=== PATIENT | female | born 1975 | race Caucasian/White ===

== ENCOUNTER → 2016-12-27 | Outpatient (CLI) | payer MEDICAID ==
[2016-12-27 13:04] LABS: ABSOLUTE LYMPHOCYTES (AUTO) 2.1 10^3/uL (0.5-4.7); ABSOLUTE MONOCYTES (AUTO) 0.5 10^3/uL (0.1-1.4); ABSOLUTE NEUT (AUTO) 8.8 10^3/uL (1.7-8.2); BASOPHILS % (AUTO) 0.2 % (0-2); EOSINOPHILS % (AUTO) 0.4 % (0-6); HEMATOCRIT 35.3 % (36.0-47.0); HEMOGLOBIN 11.9 g/dL (12.0-15.5); HGB HCT DIFFERENCE 0.4; LYMPHOCYTES % (AUTO) 18.4 % (13-45); MEAN CORPUSCULAR HEMOGLOBIN 30.6 pg (27.0-33.4); MEAN CORPUSCULAR HGB CONC 33.7 g/dL (32.0-36.0); MEAN CORPUSCULAR VOLUME 91 fl (80-97); MONOCYTES % (AUTO) 4.5 % (3-13); RED BLOOD COUNT 3.89 10^6/uL (3.72-5.28); RED CELL DISTRIBUTION WIDTH 14.1 % (11.5-14.0); SEGMENTED NEUTROPHILS % (AUTO) 76.5 % (42-78); WHITE BLOOD COUNT 11.5 10^3/uL (4.0-10.5)
[2016-12-28 08:47] LABS: IMMUNOGLOBULIN E 78 IU/mL (0-100)
[2016-12-29 15:38] LABS: ALPHA-1-ANTITRYPSIN SERUM 182 mg/dL (90-200)
[2016-12-29 21:36] LABS: E001-IGE CAT DANDER <0.10 kU/L (Class 0); E005-IGE DOG DANDER <0.10 kU/L (Class 0); G002-IGE BERMUDA GRASS <0.10 kU/L (Class 0); G006-IGE TIMOTHY GRASS <0.10 kU/L (Class 0); G010-IGE JOHNSON GRASS <0.10 kU/L (Class 0); G017-IGE BAHIA GRASS <0.10 kU/L (Class 0); I100-IGE COCKROACHAMERICAN <0.10 kU/L (Class 0); M001-IGE PENICILLIUM CHRYSOGEN <0.10 kU/L (Class 0); M002-IGE CLADOSPORIUM HERBARUM <0.10 kU/L (Class 0); M003-IGE ASPERGILLUS FUMIGATUS <0.10 kU/L (Class 0); M004-IGE MUCOR RACEMOSUS <0.10 kU/L (Class 0); M005-IGE CANDIDA ALBICANS <0.10 kU/L (Class 0); M006-IGE ALTERNARIA ALTERNATA <0.10 kU/L (Class 0); M008-IGE SETOMELANOMMA ROSTRAT <0.10 kU/L (Class 0); M009-IGE FUSARIUM PROLIFERATUM <0.10 kU/L (Class 0); M010-IGE STEMPHYLIUM HERBARUM <0.10 kU/L (Class 0); M012-IGE AUREOBASIDI PULLULANS <0.10 kU/L (Class 0); M013-IGE PHOMA BETAE <0.10 kU/L (Class 0); T001-IGE MAPLE/BOX ELDER <0.10 kU/L (Class 0); T003-IGE BIRCH SILVER <0.10 kU/L (Class 0); T006-IGE CEDAR MOUNTAIN <0.10 kU/L (Class 0); T007-IGE OAK WHITE <0.10 kU/L (Class 0); T008-IGE ELM AMERICAN (WHITE <0.10 kU/L (Class 0); T011-IGE MAPLE LEAF SYCAMORE <0.10 kU/L (Class 0); T041-IGE HICKORY WHITE <0.10 kU/L (Class 0); T211-IGE SWEET GUM <0.10 kU/L (Class 0); W001-IGE RAGWEED SHORT/COMMO <0.10 kU/L (Class 0); W006-IGE MUGWORT <0.10 kU/L (Class 0); W009-IGE PLANTAIN ENGLISH <0.10 kU/L (Class 0); W014-IGE PIGWEED ROUGH <0.10 kU/L (Class 0); W018-IGE SHEEP SORREL(DOCK) <0.10 kU/L (Class 0); W020-IGE NETTLE <0.10 kU/L (Class 0)
[2016-12-30 16:00] LABS: M014-IGE EPICOCCUM PURPURASCEN <0.10 kU/L (Class 0)
== END ==
LOC: OD 11:52
PROVIDERS: ATTEND Nurse Practitioner Adult Health
DX: J43.8 Other emphysema (principal); J45.40 Moderate persistent asthma, uncomplicated
CPT/HCPCS: 36415; 81332; 82103; 82104; 82785; 85025; 86003

== ENCOUNTER → 2017-04-09 | Outpatient (CLI) | payer MEDICAID ==
[2017-04-09 15:16] LABS: ANION GAP 11 (5-19); BLOOD UREA NITROGEN 20 mg/dL (7-20); CALCIUM 9.7 mg/dL (8.4-10.2); CARBON DIOXIDE 25 mmol/L (22-30); CHLORIDE 107 mmol/L (98-107); CREATININE RESULT 0.98 mg/dL (0.52-1.25); GLUCOSE 110 mg/dL (75-110); POTASSIUM 5.1 mmol/L (3.6-5.0); SODIUM 142.8 mmol/L (137-145)
== END ==
LOC: LAB 14:39
PROVIDERS: ATTEND Physician Assistant
DX: E87.5 Hyperkalemia (principal)
CPT/HCPCS: 36415; 80048

== ENCOUNTER → 2017-08-27 | Outpatient (CLI) | payer MEDICAID ==
--- NOTE | 2017-08-27 10:09 | WOMENS IMAGING REPORT ---
EXAM DESCRIPTION: BILAT SCREENING MAMMO W/CAD COMPLETED DATE/TIME: 08/27/2017 9:34 am REASON FOR STUDY: ROUTINE SCREENING; Z12.31 Z12.31 ENCNTR SCREEN MAMMOGRAM FOR MALIGNANT NEOPLASM O F RAFAELA COMPARISON: 12/22/2013 TECHNIQUE: Standard craniocaudal and mediolateral oblique views of each breast recorded using Contappsa l acquisition. LIMITATIONS: None. FINDINGS: Findings present which are benign by mammographic criteria. No suspicious masses, calcifi cations or architectural distortion. Pertinent benign findings: Asymmetry right. Read with the assistance of CAD. .[facility] - R2 Cenova Version 1.3 .[facility] - R2 Cenova Version 1.3 .[facility] - R2 Cenova Version 2.4 .[facility] [place] R2 Cenova Version 2.4 .[facility] - R2 Chucker Version 9.2 Benign mammographic findings may include one or more of the following: Smooth masses, popcorn/rim/co arse calcifications, asymmetries, post-procedure changes, and lesions with long-standing stability. IMPRESSION: BENIGN MAMMOGRAPHIC FINDINGS. BIRADS 2 BREAST DENSITY: b. There are scattered areas of fibroglandular density. BIRAD: 2 BENIGN FINDING(S) RECOMMENDATION: ROUTINE SCREENING COMMENT: The patient has been notified of the results by letter per SA requirements. Additional no tification policies are in place for contacting patient with suspicious or incomplete findings. Quality ID #[id number]: The [employer] recommends an annual screening mammogram for women aged 40 years or over. This facility utilizes a reminder system to ensure that all patients receive reminder letters, and/or direct phone calls for appointments. This includes reminders for routine scr eening mammograms, diagnostic mammograms, or other Breast Imaging Interventions when appropriate. Th is patient will be placed in the appropriate reminder system. The [employer] (ACR) has developed recommendations for screening MRI of the breast s in certain patient populations, to be used in conjunction with mammography. Breast MRI surveillanc e may be appropriate for women with more than 20% lifetime risk of developing breast cancer as deter mined by genetic testing, significant family history of the disease, or history of mantle radiation f or Hodgkins Disease. ACR Practice Guidelines 2008. TECHNICAL DOCUMENTATION: FINDING NUMBER: (1) ASSESSMENT: (1) JOB ID: [id number]- All Rights Reserved
== END ==
LOC: WI 09:19
PROVIDERS: ATTEND Physician Assistant
DX: Z12.31 Encounter for screening mammogram for malignant neoplasm of breast (principal)
CPT/HCPCS: 77067; G0202

== ENCOUNTER → 2018-04-11 | Outpatient (CLI) | payer MEDICAID ==
--- NOTE | 2018-04-11 15:47 | RADIOLOGY REPORT (SQ) ---
EXAM DESCRIPTION: CHEST PA/LATERAL COMPLETED DATE/TIME: 04/11/2018 3:34 pm REASON FOR STUDY: STRAIN OF MUSCLE AND TENDON OF FRONT WALL OF THORAX, INIT COMPARISON: 10/11/2016 EXAM PARAMETERS: NUMBER OF VIEWS: two views TECHNIQUE: Digital Frontal and Lateral radiographic views of the chest acquired. RADIATION DOSE: NA LIMITATIONS: none FINDINGS: LUNGS AND PLEURA: No opacities, masses or pneumothorax. No pleural effusion. MEDIASTINUM AND HILAR STRUCTURES: No masses or contour abnormalities. HEART AND VASCULAR STRUCTURES: Heart normal size. No evidence for failure. BONES: No acute findings. HARDWARE: None in the chest. OTHER: No other significant finding. IMPRESSION: NO SIGNIFICANT RADIOGRAPHIC FINDING IN THE CHEST. TECHNICAL DOCUMENTATION: JOB ID: [id number]- All Rights Reserved Reading location - IP/workstation name: [email or web address]
== END ==
LOC: OD 15:20
PROVIDERS: ATTEND Physician Assistant
DX: S29.011A Strain of muscle and tendon of front wall of thorax, initial encounter (principal); X58.XXXA Exposure to other specified factors, initial encounter
CPT/HCPCS: 71046

== ENCOUNTER → 2018-12-03 | Outpatient (CLI) | payer MEDICAID ==
--- NOTE | 2018-12-03 14:07 | RADIOLOGY REPORT (SQ) ---
EXAM DESCRIPTION: CHEST PA/LATERAL COMPLETED DATE/TIME: 12/03/2018 1:48 pm REASON FOR STUDY: COUGH COMPARISON: 10/11/2016. EXAM PARAMETERS: NUMBER OF VIEWS: two views TECHNIQUE: Digital Frontal and Lateral radiographic views of the chest acquired. RADIATION DOSE: NA LIMITATIONS: none FINDINGS: LUNGS AND PLEURA: No opacities, masses or pneumothorax. No pleural effusion. MEDIASTINUM AND HILAR STRUCTURES: No masses or contour abnormalities. HEART AND VASCULAR STRUCTURES: Heart normal size. No evidence for failure. BONES: No acute findings. HARDWARE: None in the chest. OTHER: No other significant finding. IMPRESSION: NO SIGNIFICANT RADIOGRAPHIC FINDING IN THE CHEST. TECHNICAL DOCUMENTATION: JOB ID: [id number]- All Rights Reserved Reading location - IP/workstation name: [email or web address]
== END ==
LOC: OD 13:35
PROVIDERS: ATTEND Physician Assistant
DX: R05 Cough (principal)
CPT/HCPCS: 71046

== ENCOUNTER → 2019-02-25 | Outpatient (CLI) | payer MEDICAID ==
--- NOTE | 2019-02-25 09:55 | RADIOLOGY REPORT (SQ) ---
EXAM DESCRIPTION: U/S ABDOMEN COMPLETE W/DOPPLER COMPLETED DATE/TIME: 02/25/2019 9:41 am REASON FOR STUDY: RUQ ABD PAIN (R10.11) R10.11 RIGHT UPPER QUADRANT PAIN COMPARISON: None. TECHNIQUE: Dynamic and static grayscale images acquired of the abdomen and recorded on PACS. Additio nal selected color Doppler and spectral images recorded. Note: Study does not meet criteria for complete doppler/duplex scan LIMITATIONS: None. FINDINGS: PANCREAS: The head and body of the pancreas are of normal echogenicity. The tail is obsc ured by overlying bowel gas. LIVER: Fatty liver. The liver measures 18.8 cm in length, mildly prominent in size. LIVER VASCULATURE: Normal directional flow of the main portal vein and hepatic veins. GALLBLADDER: No stones. The gallbladder wall measures 3.0 mm, upper limits of normal wall thickness. No pericholecystic fluid. ULTRASOUND-DETECTED AWAN'S SIGN: Negative. INTRAHEPATIC DUCTS AND COMMON DUCT: CBD measures 3.5 mm in diameter, normal. The intrahepatic ducts normal caliber. No filling defects. INFERIOR VENA CAVA: Normal flow. AORTA: The proximal abdominal aorta measures 3.0 cm in diameter(upper limits of normal), mid segment measures 2.9 cm (upper limits of normal), and the distal segment measures 2.2 cm. RIGHT KIDNEY: The right kidney measures 9.3 x 4.0 x 5.1 cm, normal size. Normal echogenicity. No solid or suspicious masses. No hydronephrosis. No calcifications. LEFT KIDNEY: The left kidney measures 10.6 x 4.5 x 4.1 cm, normal size. Normal echogenicity. No solid or suspicious masses. No hydronephrosis. No calcifications. SPLEEN: The spleen measures 12.4 cm, normal size. No solid masses. PERITONEAL AND PLEURAL SPACES: No ascites or effusions. OTHER: No other significant finding. IMPRESSION: 1. Fatty liver. Hepatomegaly. 2. The tail of the pancreas is obscured by overlying bowel gas. 3. Additional findings as above. TECHNICAL DOCUMENTATION: JOB ID: [id number]- All Rights Reserved Reading location - IP/workstation name: [email or web address]
== END ==
LOC: RAD 08:44
PROVIDERS: ATTEND Physician Assistant
DX: K76.0 Fatty (change of) liver, not elsewhere classified (principal); R10.11 Right upper quadrant pain; R20.0 Anesthesia of skin
CPT/HCPCS: 76700; 93976